=== PATIENT | male | born 1970 | race Caucasian/White ===

== ENCOUNTER 2017-07-10 18:57 | Emergency (ER) | payer SELFPAY ==
[~2017-07-10] VITALS: Ht 180.3 cm; Wt 90.7 kg
--- NOTE | 2017-07-10 20:53 | ED Upper Extremity ---
General Chief Complaint: Trauma-Non Activation Stated Complaint: FALL;LEFT ARM INJ Nursing Triage Note: SEE TRAUMA NOTE. Nursing Sepsis Screen: No Definite Risk History of Present Illness Time seen by provider: 20:50 Initial Comments Patient reports he was working on a ladder approximately 4-1/2 foot off the ground, he was pulling on a wire when he fell back landing directly on his left shoulder. He reports being right hand dominant. He had immediate onset of pain in the left shoulder and felt a pop. He denies any previous histories of injuries to his left upper extremity. He denies any paresthesias or radicular symptoms in the left upper extremity. Ring was removed from the left finger and placed on his right hand. Watch was removed as well and given to him. He denies any chest or rib pain. No dyspnea on an inhalation. Denies head injury or loss of consciousness Pain/Injury Location: left shoulder, left arm Method of Injury: fell Modifying Factors: Improves With Immobilization, Improves With Rest Allergies and Home Medications Allergies Coded Allergies: No Known Drug Allergies (Unverified , 07/10/17) Home Medications Hydrocodone/Acetaminophen 1 Each Tablet, 1 EACH PO Q4H PRN for PAIN, #20 Ref 0 Prescribed by: MAISHA ARAUZ on 07/10/17 9799 Constitutional: no symptoms reported, see HPI Musculoskeletal: see HPI, joint pain (left shoulder) Psychiatric/Neurological: No Symptoms Reported, See HPI All Other Systems Reviewed Negative Unless Noted: Yes Past Rggipns-Zshvzj-Yjdewr Hx Patient Social History Alcohol Use: Denies Use Recreational Drug Use: No Smoking Status: Current Everyday Smoker Type Used: Cigarettes 2nd Hand Smoke Exposure: Yes Recent Foreign Travel: No Contact w/Someone Who Travel: No Recent Infectious Disease Expo: No Recent Hopitalizations: No Physical Abuse: No Sexual Abuse: No Seasonal Allergies Seasonal Allergies: No Surgeries History of Surgeries: Yes Surgeries: Orthopedic Psychosocial Suicide Risk Score: 0 Reviewed Nursing Assessment Reviewed/Agree w Nursing PMH: Yes Physical Exam Vital Signs Vital Sign - Last 12Hours 07/10/17 20:15 Temp 97.8 Pulse 85 Resp 20 B/P (MAP) 155/90 Pulse Ox 96 O2 Delivery Room Air Capillary Refill : Less Than 3 Seconds General Appearance: WD/WN, no apparent distress Neck: full range of motion (that reproduces left shoulder pain.), supple, normal inspection Cardiovascular: normal peripheral pulses, regular rate, rhythm Respiratory: chest non-tender, lungs clear, normal breath sounds, no respiratory distress Gastrointestinal: normal bowel sounds, non tender, soft Back: normal inspection, no CVA tenderness, no vertebral tenderness Shoulder: limited ROM, pain, soft tissue tenderness, swelling Elbow/Forearm: normal inspection, non-tender, Left Wrist: Yes normal inspection, Yes non-tender Hand: normal inspection, non-tender, Left Neurologic/Tendon: normal sensation, normal motor functions, normal tendon functions Neurologic/Psychiatric: no motor/sensory deficits, normal mood/affect, oriented x 3 Skin: normal color, warm/dry Progress/Results/Core Measures Results/Orders My Orders Orders - MAISHA ARAUZ Fentanyl Injection (Sublimaze Injection (07/10/17 21:00) Saline Lock/Iv-Start (07/10/17 21:00) Shoulder, Left, 3 Views (07/10/17 21:00) Chest Pa/Lat (2 View) (07/10/17 21:16) Fentanyl Injection (Sublimaze Injection (07/10/17 21:54) Rx-Hydrocodone/Apap 5-325 Mg (Rx-Vicodin (07/10/17 22:45) Vital Signs/I&O Vital Sign - Last 12Hours 07/10/17 20:15 Temp 97.8 Pulse 85 Resp 20 B/P (MAP) 155/90 Pulse Ox 96 O2 Delivery Room Air Blood Pressure Mean: 111 Progress Note : Time: 20:50 Progress Note Initial evaluation completed we'll give fentanyl 50 g IV, x-ray left shoulder and then reevaluation. 2129 x-rays negative for acute fracture dislocation, separation noted in before meals joint. Sling applied to left upper extremity. Ice pack to shoulder. Patient reports pain improved slightly but then returned. Fentanyl 50 mg IV. 2199 patient reports pain controlled. Discharge planning reviewed with him and will follow-up with orthopedics. Diagnostic Imaging Diagonstic Imaging: Xray Plain Films/CT/US/NM/MRI: chest Comments NAME: ALEX CAR MED REC#: [id number] PT STATUS: REG ER : 1970 PHYSICIAN: MAISHA ARAUZ ADMIT DATE: 07/10/17/ER Draft Date of Exam:07/10/17 SHOULDER, LEFT, 3 VIEWS INDICATION: Fall. FINDINGS: There are findings suggestive of a chronic left-sided AC joint separation. Clavicle is superior to the acromion but there are also calcifications demonstrated at the expected level of the coracoclavicular ligament suggesting remote injury. There is no acute fracture. The glenohumeral joint appears appropriately located. IMPRESSION: 1. 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 While the distal clavicle is superiorly positioned relative to the acromion, there also appear to be calcifications at the expected levels of the coracoclavicular ligaments suggesting prior chronic injury. There is no acute fracture. Dictated on workstation # [id number] Dict: 07/10/172128 Trans: 07/10/172136 ACB Interpreted by: BETSY MOSHER MD Electronically signed by: Reviewed: Reviewed by Me Diagonstic Imaging: Xray Plain Films/CT/US/NM/MRI: chest Comments NAME: ALEX CAR MED REC#: [id number] PT STATUS: REG ER : 1970 PHYSICIAN: MAISHA ARAUZ ADMIT DATE: 07/10/17/ER Signed Date of Exam: 07/10/17 CHEST PA/LAT (2 VIEW) INDICATION: Fall. FINDINGS: These 2 views of the chest demonstrate no evidence of focal pulmonary infiltrate. There is no effusion. There is no pneumothorax. Heart size and mediastinal contours are appropriate. No rib fracture is evident. There are findings suggestive of a left AC joint separation. IMPRESSION: 1. No acute cardiopulmonary process demonstrated. 2. Left AC joint separation. As described on shoulder examination, this may be chronic. Dictated by: Dictated on workstation # [id number] Dict: 07/10/172130 Trans: 07/10/172134 Interpreted by: BETSY MOSHER MD Electronically signed by: BETSY MOSHER MD 07/10/172134 Reviewed: Reviewed by Me Departure Impression Impression: Primary Impression: Acromioclavicular joint separation Qualified Codes: S43.102A - Unspecified dislocation of left acromioclavicular joint, initial encounter Additional Impressions: Fall Qualified Codes: W19.XXXA - Unspecified fall, initial encounter Left shoulder pain Qualified Codes: M25.512 - Pain in left shoulder Disposition: 01 HOME, SELF-CARE Condition: Stable Departure-Patient Inst. Decision time for Depature: 21:45 Referrals: NO,LOCAL PHYSICIAN (PCP) Primary Care Physician Patient Instructions: Shoulder, Shoulder Pain (DC) Add. Discharge Instructions: Sling to left arm. Remove several times a day for gentle range of motion to the left shoulder. Ice to left shoulder 20 minutes every 2-3 hours Call orthopedics tomorrow for follow-up appointment next week. Ibuprofen 600 mg every 8 hours. Use prescription pain medicine as needed Return to emergency department for new injury, numbness or tingling in the left arm, or new problems. All discharge instructions reviewed with patient and/or family. Voiced understanding. Scripts Hydrocodone/Acetaminophen (Hydrocodon -Acetaminophen 5-325) 1 Each Tablet 1 EACH PO Q4H Y for PAIN, #20 TAB 0 Refills Prov: MAISHA ARAUZ 07/10/17 Work/School Note: Local Medical Staff Listing MAISHA ARAUZ Jul 10, 2017 20:53
[2017-07-10] MEDS ORDERED: fentaNYL INJECTION 100 MCG/2 ML AMP IVP STA ×2 (21:00→21:54)
--- NOTE | 2017-07-10 21:34 | Diagnostic Imaging Report ---
INDICATION: Fall. FINDINGS: These 2 views of the chest demonstrate no evidence of focal pulmonary infiltrate. There is no effusion. There is no pneumothorax. Heart size and mediastinal contours are appropriate. No rib fracture is evident. There are findings suggestive of a left AC joint separation. IMPRESSION: 1. No acute cardiopulmonary process demonstrated. 2. Left AC joint separation. As described on shoulder examination, this may be chronic. Dictated by: Dictated on workstation # [id number]
--- NOTE | 2017-07-10 21:37 | Diagnostic Imaging Report ---
INDICATION: Fall. FINDINGS: There are findings suggestive of a chronic left-sided AC joint separation. Clavicle is superior to the acromion but there are also calcifications demonstrated at the expected level of the coracoclavicular ligament suggesting remote injury. There is no acute fracture. The glenohumeral joint appears appropriately located. IMPRESSION: 1. 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 While the distal clavicle is superiorly positioned relative to the acromion, there also appear to be calcifications at the expected levels of the coracoclavicular ligaments suggesting prior chronic injury. There is no acute fracture. Dictated by: Dictated on workstation # [id number]
[2017-07-10] MEDS ORDERED: HYDR-3812 PO (22:43)
[2017-07-10] MEDS ORDERED: RX-HYDROCODONE/APAP 5/325 MG #4 TAB PK PO PRN (22:45)
[2017-07-10 22:49] VITALS: BP 138/91
== END 2017-07-10 22:49 | disposition home or self-care (01) ==
LOC: ER 18:59
DX: S43.102A Unspecified dislocation of left acromioclavicular joint, initial encounter (principal); F17.210 Nicotine dependence, cigarettes, uncomplicated; W11.XXXA Fall on and from ladder, initial encounter
CPT/HCPCS: 71020; 73030; 96374; 96376